=== PATIENT | male | born 1955 | race Caucasian/White ===

== ENCOUNTER → 2020-05-01 | Outpatient (CLI) | payer BC, OTHER ==
[~2020-05-01] MED LIST: ASPIRIN EC325 M1 PO; ASPIRIN325; CARDIZEM CD240 MG PO; CIPROFLOXACIN500 M3 OR; COUMADIN PO; COZAAR100 MG PO; FLECAINIDE ACE100 MG PO; MULTAQ400 MG PO; NOHOMEMEDICATIONS; PERCOCET 7.5-31 EACH PO; PRADAXA150 MG PO; PYRIDIUM200 MG PO
== END ==
LOC: SJCVCIMAG 12:55
PROVIDERS: ATTEND Internal Medicine Cardiovascular Disease
DX: I34.0 Nonrheumatic mitral (valve) insufficiency (principal); I11.9 Hypertensive heart disease without heart failure; I48.91 Unspecified atrial fibrillation; I42.9 Cardiomyopathy, unspecified

== ENCOUNTER → 2020-06-03 | Outpatient (CLI) | payer BC, OTHER ==
[~2020-06-03] MED LIST changes: +EFFER-K 10 MEQ10 ME1 PO; +FUROSEMIDE 40 M40 MG PO; +LIPITOR 20 MG T20 M1 PO; +METOPROLOL SUCC25 M1 PO; +SUPER THERAVIT1 EACH PO
== END ==
LOC: LAB 08:02
PROVIDERS: ATTEND Internal Medicine Cardiovascular Disease
DX: Z01.812 Encounter for preprocedural laboratory examination (principal); Z20.828 Contact with and (suspected) exposure to other viral communicable diseases

== ENCOUNTER → 2020-06-04 | Outpatient (CLI) | payer BC, OTHER ==
[~2020-06-04] VITALS: Ht 188 cm; Wt 166.0 kg
[2020-06-04 10:38] VITALS: BP 141/80
[2020-06-04 11:50] LABS: BASOPHILS 1.1 % (0.0-2.0); EOSINOPHILS 2.9 % (0.0-3.0); HEMATOCRIT 43.4 % (42.0-52.0); HEMOGLOBIN 14.9 gm/dL (14.0-18.0); LYMPHOCYTES 26.4 % (24.0-44.0); MCH 31.3 pg (26.0-34.0); MCHC 34.3 g/dL (28.0-37.0); MCV 91.3 fL (80.0-100.0); MONOCYTES 10.5 % (1.0-8.0); PLATELET COUNT 267 thou/uL (150-400); POLYS 59.1 % (36.0-66.0); RBC 4.75 mil/uL (4.50-6.00); RDW 14.8 % (10.5-14.5); WBC 6.8 thou/uL (4.0-11.0)
[2020-06-04 11:57] LABS: CREATININE 1.3 mg/dL (0.7-1.3); POTASSIUM 4.3 mmol/L (3.5-5.1)
[2020-06-04 12:12] LABS: ALBUMIN 3.4 g/dL (3.4-5.0); APTT 32.6 Seconds (24.5-32.8); INR 1.3; PROTIME 12.7 Seconds (9.3-11.4); TOTAL PROTEIN 6.9 g/dL (6.4-8.2)
--- NOTE | 2020-06-07 10:42 | P ---
[facility] [place] [address] PROCEDURE REPORT Name: MILI LUTHER Room #: REG [facility]#: [id number] Admission: 06/04/20 Attend Phys: Miles Villalobos MD Discharge: Date of : 53 Report #: [id number] THIS REPORT FOR: cc: Rell Duncan Gregory DO Couchonnal, Luis F. MD ~ CARDIOVERSION PREOPERATIVE DIAGNOSIS: Atrial fibrillation. POSTOPERATIVE DIAGNOSIS: Atrial fibrillation. PROCEDURES PERFORMED: DC cardioversion. DESCRIPTION OF PROCEDURE: The patient underwent informed consent, the patient was prepped and draped in a standard fashion. The patient was sedated by the Anesthesiology service and then I performed 200 joule synchronized cardioversions, none of which restored sinus rhythm. As such, the procedure was concluded. CONCLUSIONS: Unsuccessful DC cardioversion. <ELECTRONICALLY SIGNED> By: Miles Villalobos MD 06/07/20 1042 1110 [id number] Miles Villalobos MD /nt
== END | disposition home or self-care (01) ==
LOC: CATH 08:10
PROVIDERS: ATTEND Internal Medicine Cardiovascular Disease
DX: I48.91 Unspecified atrial fibrillation (principal); I10 Essential (primary) hypertension; I25.10 Atherosclerotic heart disease of native coronary artery without angina pectoris; E78.5 Hyperlipidemia, unspecified; I42.9 Cardiomyopathy, unspecified; E66.09 Other obesity due to excess calories; Z98.890 Other specified postprocedural states; Z79.899 Other long term (current) drug therapy; Z79.01 Long term (current) use of anticoagulants; Z87.442 Personal history of urinary calculi; Z87.891 Personal history of nicotine dependence
CPT/HCPCS: 62110; 62900

== ENCOUNTER → 2020-11-06 | Outpatient (CLI) | payer OTHER, MEDICARE | LOC: SJCVC 14:48 | PROVIDERS: ATTEND Internal Medicine Cardiovascular Disease | DX: R94.31 Abnormal electrocardiogram [ECG] [EKG] (principal); I48.21 Permanent atrial fibrillation; I10 Essential (primary) hypertension; E78.00 Pure hypercholesterolemia, unspecified; D68.59 Other primary thrombophilia; G47.33 Obstructive sleep apnea (adult) (pediatric); I25.10 Atherosclerotic heart disease of native coronary artery without angina pectoris; I42.9 Cardiomyopathy, unspecified; Z90.49 Acquired absence of other specified parts of digestive tract; Z98.890 Other specified postprocedural states; Z79.899 Other long term (current) drug therapy; Z87.891 Personal history of nicotine dependence; Z82.49 Family history of ischemic heart disease and other diseases of the circulatory system ==

== ENCOUNTER → 2021-02-24 | Outpatient (CLI) | payer OTHER, MEDICARE | LOC: SJCVCIMAG 11:01 | PROVIDERS: ATTEND Internal Medicine Cardiovascular Disease | DX: I48.91 Unspecified atrial fibrillation (principal); I25.5 Ischemic cardiomyopathy; E78.5 Hyperlipidemia, unspecified; Z79.899 Other long term (current) drug therapy ==